=== PATIENT | male | born 1935 | race Caucasian/White ===

== ENCOUNTER 2017-04-10 08:40 | Day surgery (SDC) | payer OTHER ==
[~2017-04-10] VITALS: Ht 167.6 cm; Wt 90.7 kg
[~2017-04-10 08:40] MED LIST: ASPIRIN81 M2 PO; FLOMAX0.4 MG PO; FLONASE16 G1 BOTH NARES; LIPITOR10 MG PO; OXAYDO5 MG PO; PROVENTIL,2.5 MG/3 M IH; SINGULAIR10 MG PO; VITAMIN B-12250 MCG PO; VITAMIN D31000 UNI2 PO
== END 2017-04-10 10:10 | disposition home or self-care (01) ==
LOC: PAIN 08:40 → SDC 09:15 → PAIN 09:15
DX: M47.26 Other spondylosis with radiculopathy, lumbar region (principal); M48.06 Spinal stenosis, lumbar region; F41.9 Anxiety disorder, unspecified; M41.9 Scoliosis, unspecified; M51.26 Other intervertebral disc displacement, lumbar region; E78.5 Hyperlipidemia, unspecified; N40.0 Benign prostatic hyperplasia without lower urinary tract symptoms; M17.0 Bilateral primary osteoarthritis of knee
CPT/HCPCS: J1030; J3010; S0020

== ENCOUNTER 2017-04-17 09:03 | Day surgery (SDC) | payer OTHER ==
[~2017-04-17] VITALS: Ht 167.6 cm; Wt 88.9 kg
== END 2017-04-17 10:52 | disposition home or self-care (01) ==
LOC: PAIN 09:03 → SDC 09:15 → PAIN 10:52
DX: M47.26 Other spondylosis with radiculopathy, lumbar region (principal); M41.9 Scoliosis, unspecified; F41.9 Anxiety disorder, unspecified; M51.26 Other intervertebral disc displacement, lumbar region; M48.06 Spinal stenosis, lumbar region; M17.0 Bilateral primary osteoarthritis of knee; E78.5 Hyperlipidemia, unspecified; N40.0 Benign prostatic hyperplasia without lower urinary tract symptoms
CPT/HCPCS: J1030; J2250; J3010; S0020

== ENCOUNTER 2017-07-18 10:01 | Day surgery (SDC) | payer OTHER ==
[~2017-07-18] VITALS: Ht 167.6 cm; Wt 89.8 kg
[~2017-07-18 10:01] MED LIST changes: +BIOTIN1000 MCG PO; +PROAIR HFA8.5 GM IH; -VITAMIN D31000 UNI2 PO; +VITAMIN D35000 UNIT PO
== END 2017-07-18 11:35 | disposition home or self-care (01) ==
LOC: PAIN 10:01 → SDC 10:30 → PAIN 11:35
DX: M47.26 Other spondylosis with radiculopathy, lumbar region (principal); M54.5 Low back pain; G89.29 Other chronic pain; M41.9 Scoliosis, unspecified; M51.16 Intervertebral disc disorders with radiculopathy, lumbar region; M48.061 Spinal stenosis, lumbar region without neurogenic claudication; M17.0 Bilateral primary osteoarthritis of knee; J45.909 Unspecified asthma, uncomplicated; K21.9 Gastro-esophageal reflux disease without esophagitis; Z79.82 Long term (current) use of aspirin
CPT/HCPCS: J1030; J2250; J3010; S0020

== ENCOUNTER 2017-07-25 09:40 | Day surgery (SDC) | payer OTHER ==
[~2017-07-25] VITALS: Ht 167.6 cm; Wt 89.8 kg
== END 2017-07-25 11:35 | disposition home or self-care (01) ==
LOC: PAIN 09:40 → SDC 10:30 → PAIN 10:30
DX: M47.26 Other spondylosis with radiculopathy, lumbar region (principal); M51.16 Intervertebral disc disorders with radiculopathy, lumbar region; M54.5 Low back pain; G89.29 Other chronic pain; M48.061 Spinal stenosis, lumbar region without neurogenic claudication; M17.0 Bilateral primary osteoarthritis of knee; E78.5 Hyperlipidemia, unspecified; J45.909 Unspecified asthma, uncomplicated; Z79.82 Long term (current) use of aspirin
CPT/HCPCS: J1030; J2250; J3010; S0020

== ENCOUNTER → 2018-01-23 | Outpatient (CLI) | payer OTHER | END | disposition home or self-care (01) | DX: M17.12 Unilateral primary osteoarthritis, left knee (principal); R26.2 Difficulty in walking, not elsewhere classified; M25.562 Pain in left knee; M25.662 Stiffness of left knee, not elsewhere classified; Z74.1 Need for assistance with personal care; M62.81 Muscle weakness (generalized) | CPT/HCPCS: 97161 GP; 97165 GO; 97530 GP; 97535 GO; G8978 GP; G8979 GP; G8980 GP; G8987 GO; G8988 GO; G8989 GO ==

== ENCOUNTER 2018-02-18 21:11 | Inpatient (IN) | payer OTHER ==
[~2018-02-18] VITALS: Ht 162.6 cm; Wt 91.2 kg
[~2018-02-18 21:11] MED LIST changes: +LEVITRA20 MG PO; +RESTORIL30 MG PO; +VITAMIN D31000 UNI2 PO; -VITAMIN D35000 UNIT PO; +VOLTAREN 1% GE100 GM TP
[2018-02-19 07:38] VITALS: BP 142/74
[2018-02-19 15:02] VITALS: BP 121/70
[2018-02-19 16:26] VITALS: BP 132/64
[2018-02-19 17:55] VITALS: BP 143/70
[2018-02-19 20:03] VITALS: BP 111/65
[2018-02-20 00:20] VITALS: BP 107/52
[2018-02-20 04:05] VITALS: BP 119/65
[2018-02-20 07:48] VITALS: BP 121/60
[2018-02-20] MEDS ORDERED: OXYCODONE HCL5 MG PO (08:29)
[2018-02-20] MEDS ORDERED: ELIQUIS2.5 MG PO (08:29)
[2018-02-20 12:15] VITALS: BP 110/64
[2018-02-20 15:53] VITALS: BP 117/57
[2018-02-20 20:19] VITALS: BP 122/56
[2018-02-21 00:05] VITALS: BP 110/54
[2018-02-21 08:20] VITALS: BP 124/59
[2018-02-21 12:28] VITALS: BP 118/59
== END 2018-02-21 14:40 | disposition home or self-care (01) | DRG 470 ==
LOC: ENRESERV 21:11 → 2SOUTH 02-19 07:05 → 3WEST 02-19 14:12
PROC: 0SRD0J9 Replacement of Left Knee Joint with Synthetic Substitute, Cemented, Open Approach (ICD-10-PCS; principal; 2018-02-19)
DX: M17.12 Unilateral primary osteoarthritis, left knee (principal); J45.909 Unspecified asthma, uncomplicated; E78.00 Pure hypercholesterolemia, unspecified; E53.8 Deficiency of other specified B group vitamins
CPT/HCPCS: 86850; 86900; 86901; 88304; 88305; 88313; C1713; J0131; J0690; J1885; J2795; J7050; J7120; S0020